=== PATIENT | female | born 1975 | race Hispanic/Latino ===

== ENCOUNTER 2021-12-10 21:10 | Inpatient (IN) | payer BC ==
[2021-12-10] MEDS ORDERED: Ondansetron PF 4 MG/2 ML Vial ONE (21:56)
[2021-12-10 22:09] LABS: Hemoglobin 17.8 g/dL (12.0-15.5); MDiff Complete? YES; Manual Diff?? YES; Mean Corpuscular HGB CONC 35.3 g/dL (32.0-36.0); Mean Corpuscular Hemoglobin 30.5 pg (27.0-33.0); Mean Corpuscular Volume 86.3 fl (81.6-98.3); Mean Platelet Volume 10.7 fl (7.4-10.4); Platelet Count 467 10x3/uL (150-450); RBC Distribution Width 12.3 % (11.5-14.5); Red Blood Cell (RBC) Count 5.84 10x6/uL (3.90-5.03); White Blood Cell (WBC) Count 23.3 10x3/uL (3.5-10.5)
[2021-12-10 22:23] LABS: ALT (SGPT) 29 U/L (8-55); AST (SGOT) 21 U/L (5-34); Albumin 5.3 g/dL (3.5-5.0); Alkaline Phosphatase 86 U/L (40-110); Anion Gap 23 mmol/L (10-20); BUN (Urea Nitrogen) 27 mg/dL (7.0-18.7); Bilirubin, Total 0.9 mg/dL (0.2-1.2); Calc. Creatinine Clearance 0 mL/min (70-130); Calcium 10.5 mg/dL (7.8-10.44); Carbon Dioxide 18 mmol/L (22-29); Chloride 100 mmol/L (98-107); Globulin 4.3 g/dL (2.4-3.5); Glucose 221 mg/dL (70-105); Lipase 54 U/L (8-78); Potassium 3.4 mmol/L (3.5-5.1); Protein, Total 9.6 g/dL (6.0-8.3); Sodium 138 mmol/L (136-145)
[2021-12-10] MEDS ORDERED: cefTRIAXone\\ROCEPHIN 2 GM VIAL ONE (22:34)
[2021-12-10 22:44] LABS: BHCG - Serum Negative (NEGATIVE); Pregs Control Background? CLEAR/WHITE (CLR/WHITE); Pregs Control Bar Appear? YES (CONTROL BAR)
[2021-12-10] MEDS ORDERED: Pantoprazole 40 MG VIAL ONE (23:17)
[2021-12-10] MEDS ORDERED: Promethazine HCl 25 MG/ML VIAL ONE (23:21)
[2021-12-10 23:27] LABS: Bilirubin 3+ (Negative); Blood, Urine 25 (Negative); Clarity Slightly Cloudy (Clear); Glucose, Urine (Dipstick) Normal (Negative); Ketone, Urine 5 mg/dL (Negative); Leukocyte 25 (Negative); Nitrite Negative (Negative); Protein, Urine (Dipstick) 30 mg/dl (Neg-Trace)
[2021-12-10 23:41] LABS: Bacteria/HPF 2+ HPF (None Seen)
[2021-12-10 23:47] LABS: Band 29 % (5-11); Lymphocytes 14 % (21-51); Monocytes 3 % (0-10); Neutrophil 44 % (42-75); Reactive Lymphocytes 10 % (0-10)
[2021-12-10 23:49] LABS: Toxic Granulation SLIGHT; Vacuoles SLIGHT
[2021-12-10 23:50] LABS: Platelet Morphology Comment PLT clumps seen-ADEQ
[2021-12-11] MEDS ORDERED: Cefepime 2 GM VIAL ONE (00:33)
[2021-12-11 01:18] LABS: SARS-CoV-2 NAA Rapid Test Not Detected (NotDetected)
[2021-12-11 01:57] LABS: Lactic Acid 3.1 mmol/L (0.5-2.2)
[2021-12-11] MEDS ORDERED: Acetaminophen 325 MG TAB PO PRN (02:11)
[2021-12-11] MEDS ORDERED: Dextrose 50% Abboject 50 ML SYRINGE SLOW IVP PRN (02:11)
[2021-12-11] MEDS ORDERED: Calcium Carbonate 500 MG ChewTAB PO PRN (02:11)
[2021-12-11] MEDS ORDERED: Dextrose 5% in Water 1,000 ML IV PRN (02:11)
[2021-12-11] MEDS ORDERED: Ondansetron PF 4 MG/2 ML Vial IVP PRN (02:18)
[2021-12-11 02:28] VITALS: BMI 36.0
[2021-12-11] MEDS ORDERED: Scopolamine 1.5 mg/72 hour Patch TD SCH (02:30)
[2021-12-11] MEDS ORDERED: cefTRIAXone\\ROCEPHIN 1 GM in Sodium Chloride 0.9% 100 ML IVPB SCH (03:00)
[2021-12-11 04:04] LABS: #Eosinphils 0.1 10x3/uL (0.0-0.5); #Monocytes 0.9 10x3/uL (0.0-1.1); #Neutrophils 13.4 10x3/uL (1.5-8.4); %Basophils 0.2 % (0.0-2.0); %Eosinophils 0.4 % (0.0-6.0); %Lymphocytes 11.3 % (18.0-47.0); %Monocytes 5.5 % (0.0-10.0); %Neutrophils 82.1 % (40.0-75.0); Hemoglobin 14.5 g/dL (12.0-15.5); Mean Corpuscular HGB CONC 33.3 g/dL (32.0-36.0); Mean Corpuscular Hemoglobin 30.2 pg (27.0-33.0); Mean Corpuscular Volume 90.6 fl (81.6-98.3); Mean Platelet Volume 10.6 fl (7.4-10.4); Platelet Count 297 10x3/uL (150-450); RBC Distribution Width 12.5 % (11.5-14.5); White Blood Cell (WBC) Count 16.3 10x3/uL (3.5-10.5)
[2021-12-11 04:15] LABS: Lactic Acid 3.1 mmol/L (0.5-2.2)
[2021-12-11 04:29] LABS: ALT (SGPT) 19 U/L (8-55); AST (SGOT) 15 U/L (5-34); Albumin 4.2 g/dL (3.5-5.0); Alkaline Phosphatase 66 U/L (40-110); Anion Gap 23 mmol/L (10-20); BUN (Urea Nitrogen) 29 mg/dL (7.0-18.7); Calc. Creatinine Clearance 119 mL/min (70-130); Calcium 8.6 mg/dL (7.8-10.44); Carbon Dioxide 21 mmol/L (22-29); Chloride 103 mmol/L (98-107); Globulin 2.9 g/dL (2.4-3.5); Glucose 151 mg/dL (70-105); Magnesium 1.7 mg/dL (1.6-2.6); Potassium 4.4 mmol/L (3.5-5.1); Protein, Total 7.1 g/dL (6.0-8.3); Sodium 143 mmol/L (136-145)
[2021-12-11] MEDS: Potassium Chloride 20 MEQ in Premix Bag 1 BAG IVPB SCH ×2 (04:39→10:42)
[2021-12-11] MEDS: Sodium Chloride 0.45% 1,000 ML IV SCH ×2 (04:41→13:54)
[2021-12-11 07:12] LABS: Lactic Acid 3.1 mmol/L (0.5-2.2)
[2021-12-11 07:17] LABS: Anion Gap 22 mmol/L (10-20); BUN (Urea Nitrogen) 27 mg/dL (7.0-18.7); Calc. Creatinine Clearance 127 mL/min (70-130); Calcium 8.5 mg/dL (7.8-10.44); Carbon Dioxide 21 mmol/L (22-29); Chloride 103 mmol/L (98-107); Glucose 155 mg/dL (70-105); Potassium 4.6 mmol/L (3.5-5.1); Sodium 141 mmol/L (136-145)
[2021-12-11] MEDS: Nebivolol HCl 5 MG TAB PO SCH (08:21)
[2021-12-11] MEDS: cefTRIAXone\\ROCEPHIN 1 GM in Sodium Chloride 0.9% 100 ML IVPB SCH (08:21)
[2021-12-11] MEDS: Famotidine/PF 20 mg/2ml Vial SLOW IVP SCH ×2 (08:21→20:27)
[2021-12-11] MEDS: Enoxaparin Sodium 40 MG/0.4 ML SYRINGE SC SCH (08:21)
[2021-12-11] MEDS: Lidocaine 5% Patch TD SCH (14:24)
[2021-12-11] MEDS: HumaLOG 300 UNITS/3 ML VIAL SC PRN ×2 (14:24→18:35)
[2021-12-11] MEDS: traMADol HCl 50 MG TAB PO PRN (20:26)
[2021-12-11] MEDS: Guaifenesin DM 100-10/5 ML UDCUP PO PRN (20:27)
[2021-12-11] MEDS: Rosuvastatin 10 MG TAB PO SCH (20:27)
[2021-12-12] MEDS: Transdermal Patch Removal TOP SCH (01:01)
[2021-12-12] MEDS: cefTRIAXone\\ROCEPHIN 1 GM in Sodium Chloride 0.9% 100 ML IVPB SCH (05:29)
[2021-12-12] MEDS: traMADol HCl 50 MG TAB PO PRN ×2 (05:37→20:44)
[2021-12-12 08:23] LABS: #Eosinphils 0.1 10x3/uL (0.0-0.5); #Monocytes 0.3 10x3/uL (0.0-1.1); #Neutrophils 5.8 10x3/uL (1.5-8.4); %Basophils 0.3 % (0.0-2.0); %Eosinophils 1.1 % (0.0-6.0); %Lymphocytes 31.7 % (18.0-47.0); %Monocytes 3.7 % (0.0-10.0); %Neutrophils 62.9 % (40.0-75.0); Hemoglobin 13.6 g/dL (12.0-15.5); Mean Corpuscular HGB CONC 34.4 g/dL (32.0-36.0); Mean Corpuscular Hemoglobin 30.1 pg (27.0-33.0); Mean Corpuscular Volume 87.4 fl (81.6-98.3); Mean Platelet Volume 10.1 fl (7.4-10.4); Platelet Count 292 10x3/uL (150-450); RBC Distribution Width 12.5 % (11.5-14.5); Red Blood Cell (RBC) Count 4.52 10x6/uL (3.90-5.03); White Blood Cell (WBC) Count 9.2 10x3/uL (3.5-10.5)
[2021-12-12] MEDS: Enoxaparin Sodium 40 MG/0.4 ML SYRINGE SC SCH (09:30)
[2021-12-12] MEDS: Famotidine/PF 20 mg/2ml Vial SLOW IVP SCH ×2 (09:30→20:45)
[2021-12-12] MEDS: Nebivolol HCl 5 MG TAB PO SCH (09:30)
[2021-12-12] MEDS ORDERED: Ketorolac Tromethamine 30 MG/ML VIAL IVP SCH (10:00)
[2021-12-12] MEDS: Lidocaine 5% Patch TD SCH (14:22)
[2021-12-12] MEDS: Fioricet 325/50/40 mg Tablet PO PRN ×2 (14:24→21:05)
[2021-12-12] MEDS: Rosuvastatin 10 MG TAB PO SCH (20:44)
[2021-12-12] MEDS: Temazepam 15 MG CAP PO SCH (20:45)
[2021-12-12] MEDS: Guaifenesin DM 100-10/5 ML UDCUP PO PRN (20:53)
[2021-12-13] MEDS: Transdermal Patch Removal TOP SCH (01:33)
[2021-12-13] MEDS: Fioricet 325/50/40 mg Tablet PO PRN ×2 (05:17→21:46)
[2021-12-13] MEDS: cefTRIAXone\\ROCEPHIN 1 GM in Sodium Chloride 0.9% 100 ML IVPB SCH (05:17)
[2021-12-13] MEDS: traMADol HCl 50 MG TAB PO PRN ×2 (05:18→21:11)
[2021-12-13] MEDS: Enoxaparin Sodium 40 MG/0.4 ML SYRINGE SC SCH (07:57)
[2021-12-13] MEDS: Famotidine/PF 20 mg/2ml Vial SLOW IVP SCH ×2 (07:57→21:12)
[2021-12-13] MEDS: Nebivolol HCl 5 MG TAB PO SCH (07:57)
[2021-12-13] MEDS ORDERED: Cyclobenzaprine 10 MG TAB PO SCH (10:15)
[2021-12-13] MEDS ORDERED: Vancomycin HCl 1.75 GM, Admixture Fee 1 EACH in Sodium Chloride 0.9% 500 ML IVPB SCH (14:00)
[2021-12-13] MEDS: Lidocaine 5% Patch TD SCH (14:54)
[2021-12-13] MEDS ORDERED: Vancomycin 1 GM in Premix Bag 1 BAG IVPB SCH (21:00)
[2021-12-13] MEDS: Guaifenesin DM 100-10/5 ML UDCUP PO PRN (21:09)
[2021-12-13] MEDS: Temazepam 15 MG CAP PO SCH (21:11)
[2021-12-13] MEDS: Rosuvastatin 10 MG TAB PO SCH (21:11)
[2021-12-13] MEDS: Cyclobenzaprine 10 MG TAB PO PRN (21:11)
[2021-12-14] MEDS: Vancomycin HCl 1.25 GM, Admixture Fee 1 EACH in Sodium Chloride 0.9% 250 ML 250 ML IVPB SCH ×2 (01:21→14:49)
[2021-12-14] MEDS: Transdermal Patch Removal TOP SCH (01:21)
[2021-12-14 05:16] LABS: Lactic Acid 1.7 mmol/L (0.5-2.2)
[2021-12-14 08:26] LABS: #Eosinphils 0.1 10x3/uL (0.0-0.5); #Monocytes 0.6 10x3/uL (0.0-1.1); %Basophils 0.4 % (0.0-2.0); %Eosinophils 0.8 % (0.0-6.0); %Lymphocytes 33.9 % (18.0-47.0); %Monocytes 5.5 % (0.0-10.0); %Neutrophils 59.2 % (40.0-75.0); Hemoglobin 13.5 g/dL (12.0-15.5); Mean Corpuscular Hemoglobin 30.3 pg (27.0-33.0); Mean Corpuscular Volume 89.2 fl (81.6-98.3); Mean Platelet Volume 10.4 fl (7.4-10.4); Platelet Count 259 10x3/uL (150-450); RBC Distribution Width 12.1 % (11.5-14.5); Red Blood Cell (RBC) Count 4.45 10x6/uL (3.90-5.03); White Blood Cell (WBC) Count 10.2 10x3/uL (3.5-10.5)
[2021-12-14 08:29] LABS: ALT (SGPT) 24 U/L (8-55); AST (SGOT) 17 U/L (5-34); Albumin 3.9 g/dL (3.5-5.0); Alkaline Phosphatase 67 U/L (40-110); Anion Gap 14 mmol/L (10-20); BUN (Urea Nitrogen) 11 mg/dL (7.0-18.7); Bilirubin, Total 0.4 mg/dL (0.2-1.2); Calc. Creatinine Clearance 147 mL/min (70-130); Calcium 8.7 mg/dL (7.8-10.44); Carbon Dioxide 28 mmol/L (22-29); Chloride 103 mmol/L (98-107); Globulin 2.9 g/dL (2.4-3.5); Glucose 126 mg/dL (70-105); Potassium 4.5 mmol/L (3.5-5.1); Protein, Total 6.8 g/dL (6.0-8.3); Sodium 140 mmol/L (136-145)
[2021-12-14] MEDS: Enoxaparin Sodium 40 MG/0.4 ML SYRINGE SC SCH (08:31)
[2021-12-14] MEDS: Nebivolol HCl 5 MG TAB PO SCH (08:31)
[2021-12-14] MEDS: Famotidine/PF 20 mg/2ml Vial SLOW IVP SCH ×2 (08:31→20:59)
[2021-12-14 12:04] LABS: Hemoglobin A1c 6.9 % (4.0-6.0)
[2021-12-14] MEDS: Lidocaine 5% Patch TD SCH (14:50)
[2021-12-14] MEDS: Fioricet 325/50/40 mg Tablet PO PRN ×2 (15:14→20:59)
[2021-12-14] MEDS: Cyclobenzaprine 10 MG TAB PO PRN ×2 (15:24→20:59)
[2021-12-14] MEDS: HumaLOG 300 UNITS/3 ML VIAL SC PRN (17:31)
[2021-12-14] MEDS: Rosuvastatin 10 MG TAB PO SCH (20:58)
[2021-12-14] MEDS: Temazepam 15 MG CAP PO SCH (20:58)
[2021-12-14] MEDS: Guaifenesin DM 100-10/5 ML UDCUP PO PRN (20:58)
[2021-12-15] MEDS ORDERED: Levothyroxine Sodium 125 MCG TAB PO SCH (06:00)
[2021-12-15 06:55] LABS: #Eosinphils 0.1 10x3/uL (0.0-0.5); #Monocytes 0.7 10x3/uL (0.0-1.1); #Neutrophils 6.1 10x3/uL (1.5-8.4); %Basophils 0.3 % (0.0-2.0); %Eosinophils 0.6 % (0.0-6.0); %Lymphocytes 36.8 % (18.0-47.0); %Monocytes 6.4 % (0.0-10.0); %Neutrophils 55.6 % (40.0-75.0); Hemoglobin 13.5 g/dL (12.0-15.5); Mean Corpuscular Hemoglobin 30.5 pg (27.0-33.0); Mean Corpuscular Volume 87.1 fl (81.6-98.3); Mean Platelet Volume 10.1 fl (7.4-10.4); Platelet Count 276 10x3/uL (150-450); RBC Distribution Width 12.5 % (11.5-14.5); Red Blood Cell (RBC) Count 4.43 10x6/uL (3.90-5.03); White Blood Cell (WBC) Count 10.9 10x3/uL (3.5-10.5)
[2021-12-15 07:09] LABS: ALT (SGPT) 28 U/L (8-55); AST (SGOT) 17 U/L (5-34); Alkaline Phosphatase 68 U/L (40-110); Anion Gap 13 mmol/L (10-20); BUN (Urea Nitrogen) 13 mg/dL (7.0-18.7); Bilirubin, Direct 0.1 mg/dL (0.1-0.3); Bilirubin, Total 0.4 mg/dL (0.2-1.2); Calc. Creatinine Clearance 153 mL/min (70-130); Calcium 9.2 mg/dL (7.8-10.44); Carbon Dioxide 28 mmol/L (22-29); Cardiac Risk 3.1 (Less than 4.5); Chloride 104 mmol/L (98-107); Cholesterol 150 mg/dl (< 200 Desired); Glucose 92 mg/dL (70-105); HDL Cholesterol 49 mg/dL (>60 Neg Risk); LDL Cholesterol, Calculated 66 mg/dL; Magnesium 1.7 mg/dL (1.6-2.6); Potassium 4.1 mmol/L (3.5-5.1); Protein, Total 7.3 g/dL (6.0-8.3); Sodium 141 mmol/L (136-145); Triglycerides 176 mg/dL (Less than 150)
[2021-12-15 07:26] LABS: Hep B Surf Ag Non-Reactive S/CO (NonReactive)
[2021-12-15 07:30] LABS: SARS-CoV-2 NAA Rapid Test Not Detected (NotDetected)
[2021-12-15 07:52] LABS: HBSAg Index 0.18 S/CO (0-0.99)
[2021-12-15] MEDS: Transdermal Patch Removal TOP SCH (08:06)
[2021-12-15] MEDS ORDERED: Sodium Chloride 0.9% 1,000 ML IV SCH (09:00)
[2021-12-15] MEDS: Nebivolol HCl 5 MG TAB PO SCH (09:19)
[2021-12-15] MEDS: Famotidine/PF 20 mg/2ml Vial SLOW IVP SCH (09:19)
[2021-12-15] MEDS: Enoxaparin Sodium 40 MG/0.4 ML SYRINGE SC SCH (09:19)
[2021-12-15] MEDS ORDERED: Metoclopramide HCl 10 MG/2 ML VIAL IVP SCH (10:00)
[2021-12-15] MEDS ORDERED: Ketorolac Tromethamine 30 MG/ML VIAL IVP SCH (10:00)
[2021-12-15] MEDS ORDERED: diphenhydrAMINE 12.5 MG/5 ML UDCUP PO SCH (10:00)
[2021-12-15] MEDS: Lidocaine 5% Patch TD SCH (11:35)
[2021-12-15 12:37] VITALS: BP 130/87; TEMP 96.5
[2021-12-15 12:39] LABS: HBSAB Concentration Less than 8.00 mIU/mL; Hep B Surf AB Non-Reactive (NonReactive); Hep C IgG Ab Non-Reactive (NonReactive); Hep C Index 0.06 S/CO (0-0.79)
== END 2021-12-15 13:38 | disposition home or self-care (01) | DRG 103 ==
LOC: CSHERS 21:10 → CSHTELE 12-11 01:04 → OBSVTOIN 12-12 10:01
PROVIDERS: ADMIT Student in an Organized Health Care Education/Training Program; ATTEND Family Medicine
DX: G43.909 Migraine, unspecified, not intractable, without status migrainosus (principal); N17.9 Acute kidney failure, unspecified; E87.2 Acidosis; K58.9 Irritable bowel syndrome, unspecified; E87.6 Hypokalemia; E86.0 Dehydration; M54.50 Low back pain, unspecified; K76.0 Fatty (change of) liver, not elsewhere classified; G89.29 Other chronic pain; E11.65 Type 2 diabetes mellitus with hyperglycemia; E66.01 Morbid (severe) obesity due to excess calories; G47.33 Obstructive sleep apnea (adult) (pediatric); R09.02 Hypoxemia; R53.81 Other malaise; R94.31 Abnormal electrocardiogram [ECG] [EKG]; A08.4 Viral intestinal infection, unspecified; E78.00 Pure hypercholesterolemia, unspecified; E05.00 Thyrotoxicosis with diffuse goiter without thyrotoxic crisis or storm; E78.5 Hyperlipidemia, unspecified; E03.9 Hypothyroidism, unspecified; Z20.822 Contact with and (suspected) exposure to COVID-19; Z98.891 History of uterine scar from previous surgery; Z79.890 Hormone replacement therapy; Z98.890 Other specified postprocedural states; Z87.891 Personal history of nicotine dependence; Z99.81 Dependence on supplemental oxygen; Z88.2 Allergy status to sulfonamides; Z79.899 Other long term (current) drug therapy; Z79.84 Long term (current) use of oral hypoglycemic drugs; Z68.39 Body mass index [BMI] 39.0-39.9, adult; Z83.3 Family history of diabetes mellitus; Z82.49 Family history of ischemic heart disease and other diseases of the circulatory system
CPT/HCPCS: 36415; 36416; 70450; 71045; 76700; 80048; 80053; 80061; 80076; 81003; 81015; 82010; 83036; 83605; 83690; 83735; 84439; 84443; 84484; 84703; 85025; 85652; 86140; 86706; 86803; 87040; 87086; 87149; 87340; 87631; 93005; 93010; 94760; 96372; 96375; 96376; C9113; G0378; J0692; J0696; J1650; J1815; J1885; J2405; J2550; J2765; J3370; J3480; J3490; J7030; J7050; Q0163; S0028; U0002

== ENCOUNTER 2022-01-07 06:29 | Emergency (ER) | payer BC ==
[2022-01-07] MEDS ORDERED: Ondansetron PF 4 MG/2 ML Vial ONE ×2 (07:27→09:14)
[2022-01-07] MEDS ORDERED: Pantoprazole 40 MG VIAL ONE (07:28)
[2022-01-07 08:31] LABS: #Monocytes 0.8 10x3/uL (0.0-1.1); #Neutrophils 11.4 10x3/uL (1.5-8.4); %Basophils 0.2 % (0.0-2.0); %Eosinophils 0.2 % (0.0-6.0); %Lymphocytes 8.6 % (18.0-47.0); %Monocytes 6.1 % (0.0-10.0); %Neutrophils 84.7 % (40.0-75.0); Hemoglobin 14.9 g/dL (12.0-15.5); Mean Corpuscular HGB CONC 33.9 g/dL (32.0-36.0); Mean Corpuscular Hemoglobin 30.3 pg (27.0-33.0); Mean Corpuscular Volume 89.2 fl (81.6-98.3); Mean Platelet Volume 10.7 fl (7.4-10.4); Platelet Count 290 10x3/uL (150-450); RBC Distribution Width 12.2 % (11.5-14.5); Red Blood Cell (RBC) Count 4.92 10x6/uL (3.90-5.03); White Blood Cell (WBC) Count 13.5 10x3/uL (3.5-10.5)
[2022-01-07 08:46] LABS: SARS-CoV-2 NAA Rapid Test Not Detected (NotDetected)
[2022-01-07 09:01] LABS: ALT (SGPT) 31 U/L (8-55); AST (SGOT) 21 U/L (5-34); Albumin 4.6 g/dL (3.5-5.0); Alkaline Phosphatase 98 U/L (40-110); Anion Gap 21 mmol/L (10-20); BUN (Urea Nitrogen) 16 mg/dL (7.0-18.7); Bilirubin, Total 0.8 mg/dL (0.2-1.2); Calc. Creatinine Clearance 0 mL/min (70-130); Calcium 9.4 mg/dL (7.8-10.44); Carbon Dioxide 21 mmol/L (22-29); Chloride 104 mmol/L (98-107); Globulin 3.8 g/dL (2.4-3.5); Glucose 159 mg/dL (70-105); Lipase 32 U/L (8-78); Potassium 4.2 mmol/L (3.5-5.1); Protein, Total 8.4 g/dL (6.0-8.3); Sodium 142 mmol/L (136-145)
[2022-01-07 10:31] LABS: Bilirubin 1+ (Negative); Blood, Urine 25 (Negative); Clarity Slightly Cloudy (Clear); Glucose, Urine (Dipstick) Normal (Negative); Ketone, Urine Negative (Negative); Leukocyte 500 (Negative); Nitrite Negative (Negative); Protein, Urine (Dipstick) 30 mg/dl (Neg-Trace); Specific Gravity, Urine 1.025 (1.002-1.036); Urobilinogen Normal mg/dL (Less than 2)
[2022-01-07 10:51] LABS: Bacteria/HPF 2+ HPF (None Seen); Mucous/LPF 3+ LPF (<2+); White Blood Cell Cast 0-3 LPF (None Seen)
[2022-01-07 11:15] LABS: Lactic Acid 1.7 mmol/L (0.5-2.2)
[2022-01-07] MEDS ORDERED: cefTRIAXone\\ROCEPHIN 2 GM VIAL ONE (11:37)
== END 2022-01-07 12:34 | disposition home or self-care (01) ==
LOC: CSHERS 06:29
DX: E86.0 Dehydration (principal); K52.9 Noninfective gastroenteritis and colitis, unspecified; N39.0 Urinary tract infection, site not specified; Z20.822 Contact with and (suspected) exposure to COVID-19; E11.9 Type 2 diabetes mellitus without complications; E78.5 Hyperlipidemia, unspecified; E03.9 Hypothyroidism, unspecified; Z79.899 Other long term (current) drug therapy
CPT/HCPCS: 36415; 36416; 80053; 81003; 81015; 83605; 83690; 85025; 87086; 96361; 96374; 96375; 96376; C9113; J0696; J2405

== ENCOUNTER 2025-05-18 08:39 | Outpatient (CLI) | payer BC | END 2025-05-18 08:40 | disposition home or self-care (01) | LOC: CSHMRI 08:39 | PROVIDERS: ATTEND Nurse Practitioner Family | DX: M47.22 Other spondylosis with radiculopathy, cervical region (principal) | CPT/HCPCS: 72141 ==